=== PATIENT | female | born 1975 | race Caucasian/White ===

== ENCOUNTER 2016-07-01 12:13 | Emergency (ER) | payer OTHER ==
[~2016-07-01] VITALS: Ht 170.2 cm; Wt 90.7 kg
[~2016-07-01 12:13] MED LIST: ASPI1TAB30 PO; BACL10TA PO; CALC-524 PO; DICL100T PO; DOCU100C5 PO; DULO30CA2 PO; ESTR2TAB PO; GLUC1TAB33 PO; HYDR-2666 PO; HYDR-971 PO; MELO-156 PO; NAPR500T8 PO; OXYC-323 PO; PANT40GR PO; PROAIR HFA8.5 GM IH; PSYL0.527 PO; SPIR100T2 PO; SUMA50TA3 PO; TIZA4CAP PO; [UNRECOGNIZED DRUG - CODE] PO
[2016-07-01 13:00] VITALS: BP 122/64
--- NOTE | 2016-07-01 13:43 | RAD ---
Three-view study of the right elbow Clinical indications: Patient has had right elbow pain for the past year. Now patient has acute pain after fall this morning and hit a wall. Findings: A joint effusion is seen with displacement of the anterior fat pad. This is consistent with an occult radial head fracture. No fracture line is seen otherwise. Alignment is normal. No osteolytic process is seen. IMPRESSION Occult right radial head fracture.
[2016-07-01] MEDS ORDERED: HYDR-971 PO (14:07)
[2016-07-01] MEDS ORDERED: NAPR550T PO (14:07)
--- NOTE | 2016-07-01 14:07 | PHYS DOC ---
Past Medical History Past Medical History: Arthritis, Depression, Fibromyalgia, Gallstones, Other Additional Past Medical Histor: hernia repair, benign tumors Past Surgical History: Cholecystectomy, Hysterectomy, Oophorectomy, Other Additional Past Surgical Histo: tumor removal, endo tissue removal Alcohol Use: Occasionally Drug Use: Marijuana Social History Narrative: Last smoked yesterday. Adult General Chief Complaint Chief Complaint: UPPER EXTREMITY INJURY HPI HPI Patient is a 40 year old male presents emergency room today with complaint of right elbow pain after having a fall into a wall earlier today. Patient states she's been having problems with persistent pain in the right elbow anyway and is due to see an orthopedic doctor within the next week. She is just concerned because the pain in her elbow is greater today after falling into the wall. She denies any previous fractures or dislocations to right elbow she denies any history of bone forming disorders. Review of Systems Review of Systems Constitutional: Denies fever or chills [] Eyes: Denies change in visual acuity, redness, or eye pain [] HENT: Denies nasal congestion or sore throat [] Respiratory: Denies cough or shortness of breath [] Cardiovascular: No additional information not addressed in HPI [] GI: Denies abdominal pain, nausea, vomiting, bloody stools or diarrhea [] : Denies dysuria or hematuria [] Musculoskeletal: Denies back pain or joint pain [] Integument: Denies rash or skin lesions [] Neurologic: Denies headache, focal weakness or sensory changes [] Endocrine: Denies polyuria or polydipsia [] Allergies Allergies Allergies Coded Allergies Type Severity Reaction Last Updated Verified No Known Drug Allergies 07/22/15 No Physical Exam Physical Exam Constitutional: Well developed, well nourished, no acute distress, non-toxic appearance. [] HENT: Normocephalic, atraumatic, bilateral external ears normal, oropharynx moist, no oral exudates, nose normal. [] Eyes: PERRLA, EOMI, conjunctiva normal, no discharge. [] Neck: Normal range of motion, no tenderness, supple, no stridor. [] Cardiovascular:Heart rate regular rhythm, no murmur [] Lungs & Thorax: Bilateral breath sounds clear to auscultation [] Abdomen: Bowel sounds normal, soft, no tenderness, no masses, no pulsatile masses. [] Skin: Warm, dry, no erythema, no rash. [] Back: No tenderness, no CVA tenderness. [] Extremities: There is mild swelling to the lateral aspect patient's elbow. There is also tenderness to palpation in the radial head region as well as the lateral epicondylar region. There is no palpable defect, deformity, instability or crepitus. Patient demonstrates full range of motion. Right upper extremity is neurovascular intact with capillary refill less than 2 seconds. Neurologic: Alert and oriented X 3, normal motor function, normal sensory function, no focal deficits noted. [] Psychologic: Affect normal, judgement normal, mood normal. [] Current Patient Data Vital Signs Vital Signs Date Time Temp Pulse Resp B/P Pulse Ox O2 Delivery O2 Flow Rate FiO2 07/01/16 13:00 98.5 76 20 94 Room Air 98.5 EKG EKG [] Radiology/Procedures Radiology/Procedures 3 views of patient's right elbow were performed with adequate technique. There is anterior fat pad sign which the radiologist interprets as a possible occult radial head fracture. Course & Med Decision Making Course & Med Decision Making Pertinent Labs and Imaging studies reviewed. (See chart for details) [] Dragon Disclaimer Dragon Disclaimer This electronic medical record was generated, in whole or in part, using a voice recognition dictation system. Departure Departure Impression: Primary Impression: Radial head fracture, closed Disposition: 01 HOME, SELF-CARE Condition: GOOD Referrals: NOEMI REYEZ MD (PCP) Patient Instructions: Arm Sling Use, [id number], Radial Head Fracture, Easy- to-Read Additional Instructions: 1. Take the medication as prescribed. 2. Review the discharge instructions provided for home care and reasons to return the emergency department. 3. Be sure to follow up with [facility] orthopedics as planned. Scripts Hydrocodone/Apap 5-325 ([place] 5-325 Tablet)1 Each Tablet1 Tab PO PRN Q6HRS PRN PAIN #15 TAB Prov:GIAN GUILLAUME 07/01/16 Naproxen Sodium (Anaprox Ds)550 Mg [id number] Mg PO every 12 hours #20 Prov:GIAN GUILLAUME 07/01/16 Problem Qualifiers Primary Impression: Radial head fracture, closed Encounter type: initial encounter Fracture alignment: nondisplaced Laterality: right Qualified Code: S52.124A - Nondisplaced fracture of head of right radius, initial encounter for closed fracture GIAN GUILLAUME Jul 01, 2016 14:07
== END 2016-07-01 14:15 | disposition home or self-care (01) ==
LOC: ER 12:13
DX: S52.124A Nondisplaced fracture of head of right radius, initial encounter for closed fracture (principal); M79.7 Fibromyalgia; M19.90 Unspecified osteoarthritis, unspecified site; F12.10 Cannabis abuse, uncomplicated; W19.XXXA Unspecified fall, initial encounter; Y93.89 Activity, other specified; Y92.89 Other specified places as the place of occurrence of the external cause; Y99.8 Other external cause status
CPT/HCPCS: 73080; 99284

== ENCOUNTER → 2016-07-06 | Outpatient (CLI) | payer OTHER ==
[2016-04-05 14:25] VITALS: BP_DIAS 64
[2016-07-01 13:00] VITALS: BP_SYST 122
[~2016-07-06] MED LIST changes: +NAPR550T PO
--- NOTE | 2016-07-06 11:13 | KCIC ---
EXAM: Bilateral digital diagnostic mammogram. HISTORY: 40-year-old female presents with recent bloody right nipple discharge. COMPARISON: None. This is a baseline mammogram. TECHNIQUE: Full field digital craniocaudal and mediolateral oblique views of both breasts are obtained. Full field true lateral and spot compression views of the left breast were also obtained. Computer-aided detection is applied. FINDINGS: Breast parenchymal composition: Level B- Scattered fibroglandular densities. There is asymmetric density within the lateral aspect of the left breast. There is no persistent mass or distortion within this location with spot compression views. There are few benign calcifications. There is no suspicious finding within either breast. IMPRESSION: 1. BI-RADS Category 2: Benign findings. Annual mammography is recommended. 2. Note is made that if the reported right nipple discharge recurs, further evaluation with a galactogram may be attempted to exclude an intraductal lesion. This study was interpreted with the benefit of Computerized Aided Detection (CAD). Mammography is not 100% sensitive in detecting breast cancer. Therefore, a self breast exam and a clinical breast exam are very important. A negative mammogram does not negate a clinically suspicious finding and should not result in a delay in biopsying a clinically suspicious abnormality. The patient information was entered into the reminder system with a target for her next mammogram. Electronically signed by: Jesenia Albert (Jul 06, 2016 11:12:39)
== END | disposition home or self-care (01) ==
LOC: KCIC MAMMO 10:14
PROVIDERS: ATTEND Obstetrics & Gynecology
DX: N64.52 Nipple discharge (principal)
CPT/HCPCS: G0204; 77066

== ENCOUNTER → 2016-10-17 | Outpatient (CLI) | payer OTHER ==
--- NOTE | 2016-10-19 02:30 | SLEEP ---
DATE OF STUDY: 10/17/2016 ATTENDING PHYSICIAN: Mervat Marion. HISTORY: The patient is 40 years old who weighs 226 pounds with a BMI of 35. [place] score was 12. Sleep study was performed at [facility]. This was a split night study. FINDINGS: During the night study, the patient spent 438 minutes in bed and slept for 378 minutes with a sleep efficiency of 86%. Sleep latency was 13 minutes with a REM latency of 165 minutes. Overall, sleep architecture showed increased stage 1 sleep, normal stage 2 sleep, increased slow wave and slightly reduced REM sleep. During the initial diagnostic portion of the study, the patient slept for 138 minutes. During this time, there were 2 obstructive apneas. No mixed or central apneas. There were 47 hypopneas. The patient's apnea-hypopnea index was 21 per hour. Supine index was 49 per hour. REM sleep was not seen during the diagnostic portion of the study. REVIEW OF NOCTURNAL OXIMETRY STUDY: The patient's mean oxygen saturation was 77% with the lowest of 74%. EKG monitoring revealed normal sinus rhythm. Average heart rate was 64 beats per minute. No sustained arrhythmias were observed. PLMS were seen at an index of 12 per hour and 3 per hour caused EEG arousals. It should be noted that the patient did have very long fingernails and also had nail malawian and it was difficult to get the pulse ox signal accurately. The patient was started on CPAP at 5 cm of water and titrated up to 15 cm of water. At the final pressure, the patient had 57 minutes of sleep. AHI was reduced to 0 per hour. The patient had supine sleep and REM sleep as well. Oxygen saturations did fluctuate and again due to poor oximetry signal, accuracy of saturations cannot be fully assessed. They remained in the mid 80s. I would recommend doing an outpatient nocturnal oximetry study as an outpatient on the current CPAP setting. The patient used a medium size, full face mask. IMPRESSION: 1. Moderate sleep apnea-hypopnea syndrome with worsening during supine sleep. Total apnea-hypopnea index 21 per hour with supine apnea-hypopnea index 49 per hour. 2. Nocturnal hypoxia secondary to obstructive sleep apnea and some of it was related to artifact as well due to her long fingernails and nail malawian. 3. Mild periodic limb movements of sleep without any significant EEG arousals. RECOMMENDATIONS: 1. CPAP at 15 cm of water completely eliminated patient's sleep apnea and should be used on a nightly basis. 2. Follow up in 4-6 weeks to assess compliance with CPAP and to document clinical improvement. 3. I would recommend outpatient nocturnal oximetry study on the current CPAP setting to assess the need for supplemental oxygen. 4. Weight loss is strongly advised. 5. Avoid [employer] depressants. 6. Caution regarding driving until symptoms of sleep apnea resolve with the use of CPAP. KORTNEY GERMAN MD DR: IMAN/lilian JOB#: [id number] / [id number] Mervat Ayala
== END | disposition home or self-care (01) ==
LOC: SLPLAB 19:10
PROVIDERS: ATTEND Nurse Practitioner Family
DX: R40.0 Somnolence (principal); G44.229 Chronic tension-type headache, not intractable; R06.83 Snoring; R53.82 Chronic fatigue, unspecified; R06.81 Apnea, not elsewhere classified; E66.09 Other obesity due to excess calories
CPT/HCPCS: 95810

== ENCOUNTER 2016-12-27 11:24 | Emergency (ER) | payer OTHER ==
[~2016-12-27] VITALS: Ht 170.2 cm; Wt 104.3 kg
[~2016-12-27 11:24] MED LIST changes: +CALC-496 PO; -CALC-524 PO; +DOCU100C28 PO; -DOCU100C5 PO; -HYDR-2666 PO; +HYDR-2758 PO; -MELO-156 PO; +MELO7.5T29 PO
[2016-12-27 11:48] VITALS: BP 110/60
[2016-12-27] MEDS ORDERED: FLUORESCEIN OPHTH TEST STRIP. ONE (12:35)
[2016-12-27] MEDS ORDERED: TETRACAINE 0.5% OPHTH SOLUTION 4ML BOTTLE. OS ONE (12:45)
[2016-12-27] MEDS ORDERED: FLUORESCEIN OPHTH TEST STRIP. OS ONE (12:45)
[2016-12-27] MEDS ORDERED: CLIN150C14 PO (13:09)
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
== END 2016-12-27 13:10 | disposition home or self-care (01) ==
LOC: ER 11:24
DX: L03.213 Periorbital cellulitis (principal); F32.9 Major depressive disorder, single episode, unspecified; M79.7 Fibromyalgia; M19.90 Unspecified osteoarthritis, unspecified site; F12.10 Cannabis abuse, uncomplicated; Z90.49 Acquired absence of other specified parts of digestive tract; Z90.721 Acquired absence of ovaries, unilateral; Z90.710 Acquired absence of both cervix and uterus
CPT/HCPCS: 99283

== ENCOUNTER 2019-01-08 10:30 | Emergency (ER) | payer MEDICAID, OTHER ==
[~2019-01-08] VITALS: Ht 170.2 cm; Wt 88.5 kg
[~2019-01-08 10:30] MED LIST changes: +ALBU2.5V8 IH; -ASPI1TAB30 PO; +ASPI1TAB31 PO; +CLIN150C14 PO; +CYCL5TAB PO; -HYDR-2758 PO; +HYDR-2761 PO; +HYDR-3164 PO; -HYDR-971 PO; +IBUP-1060 PO; +NAPR-682 PO; -NAPR550T PO; -OXYC-323 PO; +OXYC1TAB15 PO; -PROAIR HFA8.5 GM IH; -SPIR100T2 PO; +SPIR100T4 PO; +[UNRECOGNIZED DRUG - CODE] PO; -[UNRECOGNIZED DRUG - CODE] PO
[2019-01-08 11:12] VITALS: BP 126/78
[2019-01-08] MEDS ORDERED: NAPR-514 PO (11:47)
[2019-01-08] MEDS ORDERED: METH-37 PO (11:47)
--- NOTE | 2019-01-08 11:48 | PHYS DOC ---
Past Medical History Past Medical History: Arthritis, Depression, Fibromyalgia, Gallstones, Other Additional Past Medical Histor: hernia repair, benign tumors Past Surgical History: Cholecystectomy, Hysterectomy, Oophorectomy, Other Additional Past Surgical Histo: tumor removal, endo tissue removal Alcohol Use: Occasionally Drug Use: Marijuana Adult General Chief Complaint Chief Complaint: BACK PAIN OR INJURY HPI HPI 43-year-old female presents with low back pain. She states over the weekend she was walking and tripped over a curb and felt her back tighten up. She states her last several days the stiffness in her back is increased. She denies any radicular symptoms. She denies any bowel or bladder dysfunction. She states standing and walking causes her the most difficulty. She gets some relief by lying down. She did not try and take anything to alleviate the discomfort at home.[] Review of Systems Review of Systems Constitutional: Denies fever or chills [] Eyes: Denies change in visual acuity, redness, or eye pain [] HENT: Denies nasal congestion or sore throat [] Respiratory: Denies cough or shortness of breath [] Cardiovascular: No additional information not addressed in HPI [] GI: Denies abdominal pain, nausea, vomiting, bloody stools or diarrhea [] : Denies dysuria or hematuria [] Musculoskeletal: Per history of present illness[] Integument: Denies rash or skin lesions [] Neurologic: Denies headache, focal weakness or sensory changes [] Endocrine: Denies polyuria or polydipsia [] All other systems were reviewed and found to be within normal limits, except as documented in this note. Current Medications Current Medications Current Medications Medications (Trade) Dose Ordered Sig/[facility] Start Time Stop Time Status Last Admin Dose Admin Ketorolac Tromethamine (Toradol Im) 60 mg 1X ONCE 01/08/19 12:00 01/08/19 12:01 Orphenadrine Citrate (Norflex) 60 mg 1X ONCE 01/08/19 12:00 01/08/19 12:01 Allergies Allergies Allergies Coded Allergies Type Severity Reaction Last Updated Verified No Known Drug Allergies 07/22/15 No Physical Exam Physical Exam Constitutional: Well developed, well nourished, mild to moderate distress, non- toxic appearance. [] HENT: Normocephalic, atraumatic, bilateral external ears normal, oropharynx moist, no oral exudates, nose normal. [] Eyes: PERRLA, EOMI, conjunctiva normal, no discharge. [] Neck: Normal range of motion, no tenderness, supple, no stridor. [] Cardiovascular:Heart rate regular rhythm, no murmur [] Lungs & Thorax: Bilateral breath sounds clear to auscultation [] Abdomen: Bowel sounds normal, soft, no tenderness, no masses, no pulsatile masses. [] Skin: Warm, dry, no erythema, no rash. [] Back: Lumbar paraspinal muscle spasm no midline vertebral tenderness or step- off. [] Extremities: No tenderness, no cyanosis, no clubbing, ROM intact, no edema. [] Neurologic: Alert and oriented X 3, normal motor function, normal sensory function, no focal deficits noted. [] Psychologic: Anxious[] Current Patient Data Vital Signs Vital Signs Date Time Temp Pulse Resp B/P (MAP) Pulse Ox O2 Delivery O2 Flow Rate FiO2 01/08/19 11:12 98.1 59 16 126/78 (94) 95 Room Air 98.1 EKG EKG [] Radiology/Procedures Radiology/Procedures [] Course & Med Decision Making Course & Med Decision Making Pertinent Labs and Imaging studies reviewed. (See chart for details) [] Dragon Disclaimer Dragon Disclaimer This electronic medical record was generated, in whole or in part, using a voice recognition dictation system. Departure Departure Impression: Primary Impression: Acute back pain Disposition: 01 HOME, SELF-CARE Condition: IMPROVED Referrals: NO PCP (PCP) Patient Instructions: Back Pain, Adult Additional Instructions: Return to the emergency department with any new or concerning symptoms Scripts Methocarbamol (ROBAXIN) 500 Mg Tablet 1 TAB PO Q12HR for muscle spasm, #30 TAB Prov: TRISTEN CASTRO DO 01/08/19 Naproxen (NAPROXEN) 500 Mg Tablet 1 TAB PO BID PRN for PAIN, #30 TAB 1 Refill Prov: TRISTEN CASTRO DO 01/08/19 Problem Qualifiers Primary Impression: Acute back pain Back pain location: low back pain Back pain laterality: bilateral Sciatica presence: without sciatica Qualified Codes: M54.5 - Low back pain TRISTEN CASTRO DO Jan 08, 2019 11:48
[2019-01-08] MEDS ORDERED: KETOROLAC 60 MG/2 ML VIAL. IM ONE (12:00)
[2019-01-08] MEDS ORDERED: ORPHENADRINE CITRATE 60 MG/2 ML VIAL. IM ONE (12:00)
== END 2019-01-08 12:34 | disposition home or self-care (01) ==
LOC: ER 10:30
DX: M54.5 Low back pain (principal); M19.90 Unspecified osteoarthritis, unspecified site; F32.9 Major depressive disorder, single episode, unspecified; Z90.49 Acquired absence of other specified parts of digestive tract; Z90.710 Acquired absence of both cervix and uterus
CPT/HCPCS: 96372; 99284; J1885; J2360

== ENCOUNTER 2019-06-27 23:41 | Emergency (ER) | payer MEDICAID ==
[~2019-06-27] VITALS: Ht 170.2 cm; Wt 88.5 kg
[~2019-06-27 23:41] MED LIST changes: +METH-37 PO; +NAPR-514 PO
[2019-06-28 00:05] VITALS: BP 128/80
--- NOTE | 2019-06-28 00:05 | PHYS DOC ---
Past Medical History Past Medical History: Arthritis, Depression, Fibromyalgia, Gallstones, Other Additional Past Medical Histor: hernia repair, benign tumors Past Surgical History: Cholecystectomy, Hysterectomy, Oophorectomy, Other Additional Past Surgical Histo: tumor removal, endo tissue removal Alcohol Use: Occasionally Drug Use: Marijuana Adult General Chief Complaint Chief Complaint: MECHANICAL FALL HPI HPI Patient is a 43 year old female with history of fibromyalgia, depression, who presents to the ED today complaining of mild intermittent bilateral anterior knee pain that began this afternoon after she fell. Patient reports history of chronic knee pain. She states she was moving when she fell. Denies any loss of consciousness, denies hitting her head on the ground. Denies anything specifically exacerbating or relieving her pain. Review of Systems Review of Systems Constitutional: Denies fever or chills [] Musculoskeletal: Reports bilateral knee pain Integument: Denies rash or skin lesions [] Neurologic: Denies headache, focal weakness or sensory changes [] All other systems were reviewed and found to be within normal limits, except as documented in this note. Allergies Allergies Allergies Coded Allergies Type Severity Reaction Last Updated Verified No Known Drug Allergies 07/22/15 No Physical Exam Physical Exam Constitutional: Well developed, well nourished, no acute distress, non-toxic appearance. [] Skin: Warm, dry, Back: No tenderness, no CVA tenderness. [] Extremities: Bilateral lower extremities with no obvious deformity, old scabs noted on the right anterior knee and bowen, new scab noted on the left anterior knee. No tenderness on exam, full range of motion to bilateral knees, +2 bilateral pedal pulses. Neurologic: Alert and oriented X 3, normal motor function, normal sensory function, no focal deficits noted. [] Psychologic: Flat affect EKG EKG [] Radiology/Procedures Radiology/Procedures [] Course & Med Decision Making Course & Med Decision Making Pertinent Labs and Imaging studies reviewed. (See chart for details) This is a 43-year-old female patient presenting to the ED today with bilateral knee pain status post falling today. She also has known history of chronic knee pain that she reported. Informed patient will get x-rays of the knee, if nothing is broken we'll give an anti-inflammatory and have her follow up with an orthopedic doctor. She stood up stating (this if fucking bullshit if all you will give me is ibuprofen or tylenol i may as well leave right now) she signed out AMA and left. Deejay Disclaimer Deejay Disclaimer This electronic medical record was generated, in whole or in part, using a voice recognition dictation system. Departure Departure Impression: Primary Impression: Bilateral knee pain Additional Impression: Fall Disposition: 07 AGAINST MEDICAL ADVICE Condition: STABLE Referrals: NO PCP (PCP) Problem Qualifiers Primary Impression: Bilateral knee pain Chronicity: acute Qualified Codes: M25.561 - Pain in right knee; M25.562 - Pain in left knee Additional Impression: Fall Encounter type: initial encounter Qualified Codes: W19.XXXA - Unspecified fall, initial encounter PINKY MANSFIELD PRIMER CHARGER Jun 28, 2019 00:05
== END 2019-06-28 00:04 | disposition left against medical advice (07) ==
LOC: ER 23:41
DX: M25.561 Pain in right knee (principal); M25.562 Pain in left knee; G89.29 Other chronic pain; G89.11 Acute pain due to trauma; Z90.49 Acquired absence of other specified parts of digestive tract; Z90.710 Acquired absence of both cervix and uterus; Z90.722 Acquired absence of ovaries, bilateral; W18.39XA Other fall on same level, initial encounter; Y93.89 Activity, other specified; Y92.89 Other specified places as the place of occurrence of the external cause; Y99.8 Other external cause status
CPT/HCPCS: 99281